=== PATIENT | female | born 1990 | race Two or more races ===

== ENCOUNTER 2021-01-22 23:55 | Inpatient (IN) ==
[2021-01-23 00:06] VITALS: BMI 29.0
[2021-01-23 00:46] LABS: BILIRUBIN,URINE NEGATIVE (NEGATIVE); BLOOD/HEMOGLOBIN,URINE NEGATIVE (NEGATIVE); GLUCOSE, URINE NEGATIVE (NEGATIVE); KETONES,URINE NEGATIVE (NEGATIVE); LEUKOCYTE ESTERASE ,URINE NEGATIVE (NEGATIVE); NITRITES,URINE NEGATIVE (NEGATIVE); PROTEIN,URINE NEGATIVE (NEGATIVE); UROBILINOGEN,URINE NORMAL (NORMAL)
[2021-01-23 00:55] LABS: APPEARANCE,URINE CLEAR (CLEAR); COLOR,URINE STRAW (YELLOW)
[2021-01-23] MEDS ORDERED: PHENERGAN INJ 25 MG IM PRN ×2 (01:45→06:43)
[2021-01-23] MEDS ORDERED: MORPHINE SULFATE INJ 2 MG INJ IVP PRN (01:45)
[2021-01-23] MEDS ORDERED: D5LR 1L W PITOCIN 10 UNITS/L 10 UNITS/1,000 ML BAG IV PRN (01:45)
[2021-01-23] MEDS ORDERED: REGLAN INJ 10 MG VIAL IVP PRN (01:45)
[2021-01-23] MEDS ORDERED: PITOCIN IVP ONE (01:45)
[2021-01-23] MEDS ORDERED: BETADINE SOLN ONE (01:57)
[2021-01-23] MEDS ORDERED: D5 1/2 NS 1000 ML 1,000 ML IV ONE (01:57)
[2021-01-23] MEDS ORDERED: D5LR 1L W PITOCIN 10 UNITS/L 10 UNITS/1,000 ML BAG IV ONE (01:57)
[2021-01-23] MEDS ORDERED: PITOCIN ONE (01:57)
[2021-01-23] MEDS ORDERED: D5 1/2 NS 1L W PITOCIN 20 UNITS/L 20 UNITS/1,000 ML BAG IV ONE (01:57)
[2021-01-23] MEDS ORDERED: D5 1/2 NS 1000 ML 1,000 ML IV SCH (02:00)
[2021-01-23] MEDS ORDERED: STADOL INJ ONE ×2 (02:16→04:49)
[2021-01-23] MEDS: STADOL INJ IVP PRN ×2 (02:19→05:01)
[2021-01-23 02:36] LABS: BASOPHILS # (AUTO) 0.1 X10^3/uL (0.0-0.1); BASOPHILS % (AUTO) 0.9 % (0.2-1.0); EOSINOPHILS # (AUTO) 0.1 x10^3/uL (0.0-0.2); EOSINOPHILS % (AUTO) 0.4 % (0.9-2.9); HEMATOCRIT 36.1 % (36.0-47.0); HEMOGLOBIN 12.3 g/dL (12.0-16.0); LYMPHOCYTES # (AUTO) 2.7 X10^3/uL (1.3-2.9); LYMPHOCYTES % (AUTO) 21.6 % (21.0-51.0); MEAN CORPUSCULAR HEMOGLOBIN 31.5 pg (27.0-34.0); MEAN CORPUSCULAR VOLUME 92.5 fL (80.0-100.0); MEAN PLATELET VOLUME 9.9 fL (7.4-11.0); MONOCYTES # (AUTO) 0.6 x10^3/uL (0.3-0.8); MONOCYTES % (AUTO) 4.7 % (0.0-13.0); NEUTROPHILS # (AUTO) 8.9 x10^3/uL (2.2-4.8); NEUTROPHILS % (AUTO) 72.4 % (42.0-75.0); PLATELET COUNT 205 X10^3/uL (150.0-450.0); RED CELL DISTRIBUTION WIDTH 12.8 % (11.6-16.5); WHITE BLOOD COUNT 12.3 X10^3/uL (3.6-10.0)
[2021-01-23 02:53] LABS: BLOOD UREA NITROGEN 7 mg/dL (7-18); CALCIUM 8.6 mg/dL (8.5-10.1); CHLORIDE 104 mmol/L (98-107); COR NA(FOR HYPERGLY) 139 mmol/L (136-145); CREATININE 0.75 mg/dL (0.55-1.02); SODIUM 139 mmol/L (136-145); eGFR NON BLACK RACES > 60 (>60)
[2021-01-23 03:05] LABS: AMNISURE ROM TEST NO MEMBRANES RUPTURE (NO RUPTURE)
--- NOTE | 2021-01-23 03:37 | DR.OB ---
OB Quick Note - Assessment/Plan Assessment/Plan: L&D 01/23/21 at 3:25am S-No complaint except CTX. O-Afebrile,VSS [id number] with good LTV, +accel, no decel. CTX=q 1 1/2 to 3 min. and strong by palpation CVX=4cm/75%/-1/VTX AROM with clear fluid. IUPC and FSE placed. A-IUP at 38 6/7 weeks in active labor Rh- P-Pitocin augmentation as necessary Anticipate
[2021-01-23] MEDS ORDERED: REGLAN INJ 10 MG VIAL ONE (04:23)
[2021-01-23] MEDS ORDERED: XYLOCAINE 1 % (PLAIN) ONE (06:24)
--- NOTE | 2021-01-23 06:43 | DR.OB ---
OB Quick Note - Assessment/Plan Assessment/Plan: Delivery Note PLATE GRINDER 01/23/21 at 6:30am Patient complete and pushing. Head delivered over intact perineum. Nuchal cord x 1 reduced. Nose and mouth bulb suctioned. Body delivered over intact perineum. Cord clamped x 2 and cut. Infant handed to attendant. Cord sent for gases. Placenta delivered spontaneously / intact / 3 vessel cord. No CVX tears. A small midline second degree tear noted and repaired with 0-vicryl in usual fashion. Viable female infant, VTX/OA, wt=8'7" and 8/9, stable to NBN. Mother stable to RR. TQQ=[id number].
[2021-01-23] MEDS: D5 1/2 NS 1000 ML 1,000 ML with PITOCIN 20 UNITS IV SCH ×4 (07:24→15:53)
[2021-01-23] MEDS ORDERED: ADACEL or BOOSTRIX TDaP VACCINE IM ONE (07:28)
[2021-01-23] MEDS ORDERED: AMBIEN PO PRN (07:28)
[2021-01-23] MEDS ORDERED: HYPERRHO S/D (or RHOGAM) IM PRN (07:28)
[2021-01-23] MEDS ORDERED: MILK OF MAGNESIA PO PRN (07:28)
[2021-01-23] MEDS ORDERED: DERMOPLAST PAIN RELIEF SPRAY TOP PRN (07:28)
[2021-01-23] MEDS: PRENATAL PLUS PO SCH (08:59)
[2021-01-23] MEDS: MOTRIN TAB 800 MG PO PRN ×2 (09:13→21:08)
[2021-01-24] MEDS: D5 1/2 NS 1000 ML 1,000 ML with PITOCIN 20 UNITS IV SCH ×4 (02:59→09:44)
[2021-01-24 05:05] LABS: HEMATOCRIT 31.7 % (36.0-47.0)
[2021-01-24] MEDS: MOTRIN TAB 800 MG PO PRN (09:45)
[2021-01-24] MEDS: PRENATAL PLUS PO SCH (09:45)
[2021-01-24 09:47] VITALS: BP 97/52
== END 2021-01-24 11:00 | disposition home or self-care (01) | DRG 807 ==
LOC: ER 23:58 → LD 01-23 01:46 → MED/SURG 01-23 07:53
PROVIDERS: ADMIT Specialist; ATTEND Specialist
DX: Z3A.38 38 weeks gestation of pregnancy; O36.0930 Maternal care for other rhesus isoimmunization, third trimester, not applicable or unspecified; Z37.0 Single live birth